=== PATIENT | female | born 1955 | race Caucasian/White ===

== ENCOUNTER 2019-05-23 03:31 | Day surgery (SDC) | payer MEDICARE, OTHER ==
[2019-05-23] MEDS ORDERED: Sodium Chloride 0.9% 10 ML Syringe FLUSH PRN (04:12)
--- NOTE | 2019-05-23 04:14 | EDM.PDOC ---
<Nilton Conner - Last Filed: 05/23/19 06:34> ED HPI GENERAL MEDICAL PROBLEM - General Chief Complaint: Abdominal Pain Stated Complaint: RIGHT SIDE PAIN Time Seen by Provider: 05/23/19 04:12 Source of Information: Reports: Patient, RN Notes Reviewed - History of Present Illness INITIAL COMMENTS - FREE TEXT/NARRATIVE: 63-year-old female comes in with right upper abdominal pain. Onset of this pain last evening about 8-9 hours ago. She states she may have slightly dosed off a time or 2 but the persistent pain needed very hard to sleep. She had been feeling fine earlier yesterday. She did eat borscht soup with sour cream last evening for dinner. She states she did have an episode of pain felt to be gallbladder related "many years ago" but has done fine since then up until now. She has had some nausea, dry heaves but no active vomiting. No chest pain difficulty breathing fever or chills. The pain has not been radiating strongly to her back. History of prior appendectomy. 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 Denies: Diarrhea Musculoskeletal: Denies: Shoulder Pain, Arm Pain, Back Pain Skin: Reports: No Symptoms Neurological: Reports: No Symptoms ED EXAM, GI/ABD - Physical Exam Exam: See Below General Appearance: Alert, Moderate Distress Eyes: Bilateral: Normal Appearance Throat/Mouth: Normal Inspection Head: Atraumatic Neck: Supple Respiratory/Chest: No Respiratory Distress, Lungs Clear Cardiovascular: Regular Rate, Rhythm GI/Abdominal Exam: Soft, Tender (Right upper abdomen and right mid abdomen, remainder of abdomen soft and nontender). No: Guarding, Rebound Back Exam: CVA Tenderness (R). No: CVA Tenderness (L) Extremities: Normal Inspection, Normal Range of Motion Neurological: Alert, Oriented, No Motor/Sensory Deficits Skin Exam: Warm, Dry, Normal Color Course - Vital Signs Last Recorded V/S: Last Vital Signs Temp 36.7 C 05/23/19 09:04 Pulse 96 05/23/19 09:04 Resp 16 05/23/19 09:04 BP 139/80 05/23/19 09:04 Pulse Ox 93 L 05/23/19 09:04 - Orders/Labs/Meds Orders: Active Orders 24 hr Category Date Time Status Peripheral IV Care [RC] . DIRECTED Care 05/23/19 04:13 Active Sodium Chloride 0.9% [Normal Saline] 1,000 ml Med 05/23/19 04:30 Active IV ONETIME Sodium Chloride 0.9% [Saline Flush] Med 05/23/19 04:12 Active 10 ml FLUSH ASDIRECTED PRN Peripheral IV Insertion Adult [OM.PC] Stat Oth 05/23/19 04:13 Ordered Medication Orders Sodium Chloride (Normal Saline) 1,000 mls @ 999 mls/hr IV ONETIME [facility] Last Admin: 05/23/19 04:33 Dose: 999 mls/hr Sodium Chloride (Saline Flush) 10 ml FLUSH ASDIRECTED PRN PRN Reason: Keep Vein Open Last Admin: 05/23/19 04:35 Dose: 10 ml Labs: Laboratory Tests 05/23/19 05/23/19 Range/Units 03:55 03:55 WBC 14.55 H (3.98-10.04) K/mm3 RBC 4.77 (3.98-5.22) M/mm3 Hgb 14.5 (11.2-15.7) gm/dl Hct 43.1 (34.1-44.9) % MCV 90.4 (79.4-94.8) fl MCH 30.4 (25.6-32.2) pg MCHC 33.6 (32.2-35.5) g/dl RDW Std Deviation 43.2 (36.4-46.3) fL Plt Count 514 H (182-369) K/mm3 MPV 8.6 L (9.4-12.3) fl Neut % (Auto) 88.3 H (34.0-71.1) % Lymph % (Auto) 8.9 L (19.3-51.7) % [place] % (Auto) 2.2 L (4.7-12.5) % Eos % (Auto) 0.1 L (0.7-5.8) Baso % (Auto) 0.1 (0.1-1.2) % Neut # (Auto) 12.84 H (1.56-6.13) K/mm3 Lymph # (Auto) 1.30 (1.18-3.74) K/mm3 [place] # (Auto) 0.32 (0.24-0.36) K/mm3 Eos # (Auto) 0.01 L (0.04-0.36) K/mm3 Baso # (Auto) 0.02 (0.01-0.08) K/mm3 Manual Slide Review Abnormal smear Sodium 131 L (136-145) mEq/L Potassium 4.2 (3.5-5.1) mEq/L Chloride 94 L (98-107) mEq/L Carbon Dioxide 23 (21-32) mEq/L Anion Gap 18.2 H (5-15) BUN 15 (7-18) mg/dL Creatinine 0.7 (0.55-1.02) mg/dL Est Cr Clr Drug Dosing 75.01 mL/min Estimated GFR (MDRD) > 60 (>60) mL/min BUN/Creatinine Ratio 21.4 H (14-18) Glucose 152 H (80-115) mg/dL Calcium 9.4 (8.5-10.1) mg/dL Total Bilirubin 0.2 (0.2-1.0) mg/dL GGT 25 (5-55) U/L AST 23 (15-37) U/L ALT 32 (14-59) U/L Alkaline Phosphatase 114 (46-116) U/L Total Protein 8.2 (6.4-8.2) g/dl Albumin 4.1 (3.4-5.0) g/dl Globulin 4.1 gm/dL Albumin/Globulin Ratio 1.0 (1-2) Lipase 174 (73-393) U/L Meds: Medications Generic Name Dose Route Start Last Admin Trade Name Sinan PRN Reason Stop Dose Admin Sodium Chloride 1,000 mls @ 999 mls/hr 05/23/19 04:30 05/23/19 04:33 Normal Saline IV 999 mls/hr ONETIME ABDULLAHI Administration Sodium Chloride 10 ml 05/23/19 04:12 05/23/19 04:35 Saline Flush FLUSH 10 ml ASDIRECTED PRN Administration Keep Vein Open Discontinued Medications Generic Name Dose Route Start Last Admin Trade Name Sinan PRN Reason Stop Dose Admin Hydromorphone HCl 0.5 mg 05/23/19 04:21 05/23/19 04:35 Dilaudid IVPUSH 05/23/19 04:22 0.5 mg ONETIME ONE Administration Ondansetron HCl 4 mg 05/23/19 04:21 05/23/19 04:33 Zofran IVPUSH 05/23/19 04:22 4 mg ONETIME ONE Administration - Re-Assessments/Exams Free Text/Narrative Re-Assessment/Exam: 05/23/19 05:37 White blood count is elevated, labs otherwise relatively normal. She still does have her gallbladder with history as noted of 1 episode of what may have been gallbladder associated illness many years ago. Her pain and tenderness this morning is all right upper quadrant. US of gallbladder has been ordered which can be done at 7 to 7:30 this morning. 05/23/19 07:00. Patient feeling better after IV dilaudid and IV zofran but still having some RUQ pain. It is change of shift. Will transfer care to Dr Caraballo. Departure - Departure Disposition: DC/Tfer to [facility] Clinical Impression: Acute cholecystitis, Acute cholecystitis due to biliary calculus - Discharge Information Referrals: PCP,None [Primary Care Provider] - Forms: ED Department Discharge Sepsis Event Note - Evaluation Sepsis Screening Result: No Definite Risk - Focused Exam Vital Signs: Vital Signs Temp Pulse Resp BP Pulse Ox 05/23/19 09:04 36.7 C 96 16 139/80 93 L 05/23/19 03:41 36.1 C 86 15 176/97 H 96 Date Exam was Performed: 05/23/19 Time Exam was Performed: 06:34 <Jasawnt Caraballo Last Filed: 05/23/19 10:11> Course - Re-Assessments/Exams Free Text/Narrative Re-Assessment/Exam: 05/23/19 09:43 Care at change of shift the patient had a gallbladder ultrasound done at looking at the results and it shows that there is a gallstone within the gallbladder neck with a fair amount of sludge within the gallbladder no gallbladder wall thickening or biliary duct dilation. Her white count is a little elevated at 14,500. The patient denies any fevers or chills and otherwise is doing very well at this time. Case discussed with Dr. Back on- call surgeon who will come and evaluate the patient and may indicate surgery later today. 05/23/19 10:[address] Back who is anticipating taking her to the OR shortly. Departure - Departure Time of Disposition: 10:07 Sepsis Event Note - Focused Exam Date Exam was Performed: 05/23/19 Time Exam was Performed: 10:07
[2019-05-23] MEDS ORDERED: Ondansetron 4 MG/2 ML SDV IVPUSH ONE (04:21)
[2019-05-23] MEDS ORDERED: HYDROmorphone 0.5 MG/0.5 ML Syringe IVPUSH ONE (04:21)
[2019-05-23] MEDS ORDERED: Sodium Chloride 0.9% 1,000 ML IV SCH (04:30)
--- NOTE | 2019-05-23 08:20 | US ---
Limited abdominal ultrasound: Multiple real-time images were obtained of the upper right abdomen. Liver contains no focal abnormality. Right kidney shows no hydronephrosis or discrete mass. Right kidney measures 11.5 cm in length. Pancreas is incompletely seen. Visualized portions of the pancreas are within normal limits. Gallbladder shows gallstone within the gallbladder neck. Gallbladder shows a fair amount of sludge. No gallbladder wall thickening or biliary duct dilatation is seen. Impression: 1. Gallstone within the gallbladder neck with a fair amoung if sludge within the gallbladder. No gallbladder wall thickening or biliary duct dilatation is seen. 2. No additional abnormality is appreciated on right upper quadrant abdominal ultrasound. Diagnostic code #3 This report was dictated in [place] Standard Time
[2019-05-23] MEDS ORDERED: ceFAZolin 2 GM in Premix Bag 1 BAG IV ONE (10:13)
--- NOTE | 2019-05-23 10:18 | PCM.HP.2 ---
H&P History of Present Illness - General Date of Service: 05/23/19 Source of Information: Patient History Limitations: Reports: No Limitations - History of Present Illness Duration of Symptoms: Reports: Hour(s): Location: Reports: Abdomen Quality: Reports: Sharp Severity: Severe Improves with: Reports: None Worsens with: Reports: None Other HPI/Comments: RUQ pain beginning after dinner last night, severe, lasting several hours.Associated nausea/vomiting. Had similar pain once decades ago and was found to have gallbladder sludge on ultrasound. Today, WBC 14,000 with gallstone in the neck of the gallbladder on ultrasound. 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: - Past Surgical History GI Surgical History: Reports: Appendectomy Social & Family History - Tobacco Use Smoking Status *Q: Current Every Day Smoker Years of Tobacco use: 1 Packs/Tins Daily: 0.3 - Caffeine Use Caffeine Use: Reports: Coffee - Recreational Drug Use Recreational Drug Use: No H&P Review of Systems - Review of Systems: Review Of Systems: See Below General: Reports: No Symptoms HEENT: Reports: No Symptoms Pulmonary: Reports: No Symptoms Cardiovascular: Reports: No Symptoms Gastrointestinal: Reports: Abdominal Pain, Anorexia, Vomiting Genitourinary: Reports: No Symptoms Musculoskeletal: Reports: No Symptoms Skin: Reports: No Symptoms Psychiatric: Reports: No Symptoms Neurological: Reports: No Symptoms Hematologic/Lymphatic: Reports: No Symptoms Immunologic: Reports: No Symptoms Exam - Exam Exam: See Below - Vital Signs Vital Signs: Last Vital Signs Temp 36.7 C 05/23/19 09:04 Pulse 96 05/23/19 09:04 Resp 16 05/23/19 09:04 BP 139/80 05/23/19 09:04 Pulse Ox 93 L 05/23/19 09:04 Weight: 79.379 kg - Exam General: Alert, Oriented HEENT: Conjunctiva Clear Neck: Supple Lungs: Clear to Auscultation Cardiovascular: Regular Rate GI/Abdominal Exam: Soft, No Distention, Tender, Other (positive Ramirez sign) (Female) Exam: Deferred Rectal (Female) Exam: Deferred Extremities: Normal Inspection Skin: Warm, Dry, Intact Neuro Extensive - Mental Status: Alert, Oriented x3 Psychiatric: Alert, Normal Affect - Patient Data Lab Results Last 24 hrs: Laboratory Results - last 24 hr 05/23/19 05/23/19 Range/Units 03:55 03:55 WBC 14.55 H (3.98-10.04) K/mm3 RBC 4.77 (3.98-5.22) M/mm3 Hgb 14.5 (11.2-15.7) gm/dl Hct 43.1 (34.1-44.9) % MCV 90.4 (79.4-94.8) fl MCH 30.4 (25.6-32.2) pg MCHC 33.6 (32.2-35.5) g/dl RDW Std Deviation 43.2 (36.4-46.3) fL Plt Count 514 H (182-369) K/mm3 MPV 8.6 L (9.4-12.3) fl Neut % (Auto) 88.3 H (34.0-71.1) % Lymph % (Auto) 8.9 L (19.3-51.7) % [place] % (Auto) 2.2 L (4.7-12.5) % Eos % (Auto) 0.1 L (0.7-5.8) Baso % (Auto) 0.1 (0.1-1.2) % Neut # (Auto) 12.84 H (1.56-6.13) K/mm3 Lymph # (Auto) 1.30 (1.18-3.74) K/mm3 [place] # (Auto) 0.32 (0.24-0.36) K/mm3 Eos # (Auto) 0.01 L (0.04-0.36) K/mm3 Baso # (Auto) 0.02 (0.01-0.08) K/mm3 Manual Slide Review Abnormal smear Sodium 131 L (136-145) mEq/L Potassium 4.2 (3.5-5.1) mEq/L Chloride 94 L (98-107) mEq/L Carbon Dioxide 23 (21-32) mEq/L Anion Gap 18.2 H (5-15) BUN 15 (7-18) mg/dL Creatinine 0.7 (0.55-1.02) mg/dL Est Cr Clr Drug Dosing 75.01 mL/min Estimated GFR (MDRD) > 60 (>60) mL/min BUN/Creatinine Ratio 21.4 H (14-18) Glucose 152 H (80-115) mg/dL Calcium 9.4 (8.5-10.1) mg/dL Total Bilirubin 0.2 (0.2-1.0) mg/dL GGT 25 (5-55) U/L AST 23 (15-37) U/L ALT 32 (14-59) U/L Alkaline Phosphatase 114 (46-116) U/L Total Protein 8.2 (6.4-8.2) g/dl Albumin 4.1 (3.4-5.0) g/dl Globulin 4.1 gm/dL Albumin/Globulin Ratio 1.0 (1-2) Lipase 174 (73-393) U/L Result Diagrams: 05/23/19 03:55 05/23/19 03:55 Sepsis Event Note - Evaluation Sepsis Screening Result: No Definite Risk - Focused Exam Vital Signs: Vital Signs Temp Pulse Resp BP Pulse Ox 05/23/19 09:04 36.7 C 96 16 139/80 93 L 05/23/19 03:41 36.1 C 86 15 176/97 H 96 Date Exam was Performed: 05/23/19 Time Exam was Performed: 10:14 *Q Meaningful Use (ADM) - VTE Risk Assess *Q Each Risk Factor Represents 2 Points: Age 60 - 74 Years Total Score 2 Point Risk Factors: 2 Problem List Initiated/Reviewed/Updated: Yes Orders Last 24hrs: Active Orders 24 hr Category Date Time Status Peripheral IV Care [RC] . DIRECTED Care 05/23/19 04:13 Active Sodium Chloride 0.9% [Normal Saline] 1,000 ml Med 05/23/19 04:30 Active IV ONETIME Sodium Chloride 0.9% [Saline Flush] Med 05/23/19 04:12 Active 10 ml FLUSH ASDIRECTED PRN ceFAZolin [Ancef] 2 gm Med 05/23/19 10:13 Ordered Premix Bag 1 bag IV ONETIME Peripheral IV Insertion Adult [OM.PC] Stat Oth 05/23/19 04:13 Ordered Schedule Procedure [COMM] Routine Oth 05/23/19 10:13 Ordered Medication Orders Sodium Chloride (Normal Saline) 1,000 mls @ 999 mls/hr IV ONETIME ABDULLAHI Last Admin: 05/23/19 04:33 Dose: 999 mls/hr Cefazolin Sodium/Dextrose 2 gm (/ Premix) 50 mls @ 100 mls/hr IV ONETIME ONE Stop: 05/23/19 10:42 Sodium Chloride (Saline Flush) 10 ml FLUSH ASDIRECTED PRN PRN Reason: Keep Vein Open Last Admin: 05/23/19 04:35 Dose: 10 ml Assessment/Plan Comment:: Acute cholecystitis- plan for laparoscopic cholecystectomy today. - Mortality Measure Prognosis:: Good
[2019-05-23] MEDS ORDERED: Albuterol 0.083% 2.5 MG/3 ML Neb Soln NEB ONE (11:31)
--- NOTE | 2019-05-23 11:52 | PCM.PREANE ---
Preanesthetic Assessment - Anesthesia/Transfusion/Family Hx Anesthesia History: Prior Anesthesia Without Reaction Family History of Anesthesia Reaction: No - Review of Systems General: Fatigue Pulmonary: No Symptoms (Smoker 1/3 pack per day. Bronchitis over negrita treated with zithromax, no residule symptoms. ) Cardiovascular: No Symptoms (Hypertension, controlled) Gastrointestinal: No Symptoms (Nausea earlier this morning, gone with zofran administration.) Neurological: Numbness, Pre-Existing Deficit (Neuropathy. Pain from neck to shoulders and face. Has seen neurologist for the past 5 years. Full ROM to neck. ), Tingling Other: Reports: None - Physical Assessment NPO Status Date: 05/22/19 NPO Status Time: 23:59 Vital Signs: Last Vital Signs Temp 36.7 C 05/23/19 09:04 Pulse 96 05/23/19 09:04 Resp 16 05/23/19 09:04 BP 139/80 05/23/19 09:04 Pulse Ox 93 L 05/23/19 09:04 Height: 1.68 m Weight: 79.379 kg ASA Class: 2 Mental Status: Alert & Oriented x3 Airway Class: Mallampati = 2 Dentition: Reports: Caries (Caps) Thyro-Mental Finger Breadths: 3 Mouth Opening Finger Breadths: 3 ROM/Head Extension: Full Lungs: Clear to Auscultation, Normal Respiratory Effort Cardiovascular: Regular Rate, Regular Rhythm - Lab Values: Laboratory Last Values WBC 14.55 K/mm3 (3.98-10.04) H 05/23/19 03:55 RBC 4.77 M/mm3 (3.98-5.22) 05/23/19 03:55 Hgb 14.5 gm/dl (11.2-15.7) 05/23/19 03:55 Hct 43.1 % (34.1-44.9) 05/23/19 03:55 MCV 90.4 fl (79.4-94.8) 05/23/19 03:55 MCH 30.4 pg (25.6-32.2) 05/23/19 03:55 MCHC 33.6 g/dl (32.2-35.5) 05/23/19 03:55 RDW Std Deviation 43.2 fL (36.4-46.3) 05/23/19 03:55 Plt Count 514 K/mm3 (182-369) H 05/23/19 03:55 MPV 8.6 fl (9.4-12.3) L 05/23/19 03:55 Neut % (Auto) 88.3 % (34.0-71.1) H 05/23/19 03:55 Lymph % (Auto) 8.9 % (19.3-51.7) L 05/23/19 03:55 [place] % (Auto) 2.2 % (4.7-12.5) L 05/23/19 03:55 Eos % (Auto) 0.1 (0.7-5.8) L 05/23/19 03:55 Baso % (Auto) 0.1 % (0.1-1.2) 05/23/19 03:55 Neut # (Auto) 12.84 K/mm3 (1.56-6.13) H 05/23/19 03:55 Lymph # (Auto) 1.30 K/mm3 (1.18-3.74) 05/23/19 03:55 [place] # (Auto) 0.32 K/mm3 (0.24-0.36) 05/23/19 03:55 Eos # (Auto) 0.01 K/mm3 (0.04-0.36) L 05/23/19 03:55 Baso # (Auto) 0.02 K/mm3 (0.01-0.08) 05/23/19 03:55 Manual Slide Review Abnormal smear 05/23/19 03:55 Sodium 131 mEq/L (136-145) L 05/23/19 03:55 Potassium 4.2 mEq/L (3.5-5.1) 05/23/19 03:55 Chloride 94 mEq/L (98-107) L 05/23/19 03:55 Carbon Dioxide 23 mEq/L (21-32) 05/23/19 03:55 Anion Gap 18.2 (5-15) H 05/23/19 03:55 BUN 15 mg/dL (7-18) 05/23/19 03:55 Creatinine 0.7 mg/dL (0.55-1.02) 05/23/19 03:55 Est Cr Clr Drug Dosing 75.01 mL/min 05/23/19 03:55 Estimated GFR (MDRD) > 60 mL/min (>60) 05/23/19 03:55 BUN/Creatinine Ratio 21.4 (14-18) H 05/23/19 03:55 Glucose 152 mg/dL (80-115) H 05/23/19 03:55 Calcium 9.4 mg/dL (8.5-10.1) 05/23/19 03:55 Total Bilirubin 0.2 mg/dL (0.2-1.0) 05/23/19 03:55 GGT 25 U/L (5-55) 05/23/19 03:55 AST 23 U/L (15-37) 05/23/19 03:55 ALT 32 U/L (14-59) 05/23/19 03:55 Alkaline Phosphatase 114 U/L (46-116) 05/23/19 03:55 Total Protein 8.2 g/dl (6.4-8.2) 05/23/19 03:55 Albumin 4.1 g/dl (3.4-5.0) 05/23/19 03:55 Globulin 4.1 gm/dL 05/23/19 03:55 Albumin/Globulin Ratio 1.0 (1-2) 05/23/19 03:55 Lipase 174 U/L (73-393) 05/23/19 03:55 - Allergies Allergies/Adverse Reactions: Allergies Allergy/AdvReac Type Severity Reaction Status Date / Time No Known Allergies Allergy Verified 05/23/19 03:43 - Acknowledgements Anesthesia Type Planned: General Anesthesia Pt an Appropriate Candidate for the Planned Anesthesia: Yes Alternatives and Risks of Anesthesia Discussed w Pt/Guardian: Yes Pt/Guardian Understands and Agrees with Anesthesia Plan: Yes PreAnesthesia Questionnaire 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: Reports: Hypertension 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: - Past Surgical History GI Surgical History: Reports: Appendectomy - SUBSTANCE USE Smoking Status *Q: Current Every Day Smoker Tobacco Use Within Last Twelve Months: Cigarettes Recreational Drug Use History: No - HOME MEDS Home Medications: Home Meds Lisinopril/Hydrochlorothiazide [Lisinopril-HCTZ 10-12.5 MG] 1 tab PO DAILY 05/23 [History] - CURRENT (IN HOUSE) MEDS Current Meds: Current Medications Sodium Chloride (Normal Saline) 1,000 mls @ 999 mls/hr IV ONETIME [facility] Last Admin: 05/23/19 04:33 Dose: 999 mls/hr Sodium Chloride (Saline Flush) 10 ml FLUSH ASDIRECTED PRN PRN Reason: Keep Vein Open Last Admin: 05/23/19 04:35 Dose: 10 ml Discontinued Medications Albuterol (Proventil Neb Soln) 2.5 mg NEB ONETIME ONE Stop: 05/23/19 11:32 Hydromorphone HCl (Dilaudid) 0.5 mg IVPUSH ONETIME ONE Stop: 05/23/19 04:22 Last Admin: 05/23/19 04:35 Dose: 0.5 mg Cefazolin Sodium/Dextrose 2 gm (/ Premix) 50 mls @ 100 mls/hr IV ONETIME ONE Stop: 05/23/19 10:42 Last Admin: 05/23/19 10:44 Dose: 100 mls/hr Ondansetron HCl (Zofran) 4 mg IVPUSH ONETIME ONE Stop: 05/23/19 04:22 Last Admin: 05/23/19 04:33 Dose: 4 mg
[2019-05-23] MEDS ORDERED: Propofol 200 MG/20 ML SDV ONE ×2 (13:02→13:04)
[2019-05-23] MEDS ORDERED: Ondansetron 4 MG/2 ML SDV ONE ×2 (13:03→13:04)
[2019-05-23] MEDS ORDERED: Rocuronium 50 MG/5 ML Vial ONE ×2 (13:03→13:04)
[2019-05-23] MEDS ORDERED: fentaNYL 250 MCG/5 ML SDV ONE ×2 (13:03→13:04)
[2019-05-23] MEDS ORDERED: Midazolam 1 MG/ML 2 ML SDV ONE ×2 (13:03→13:04)
[2019-05-23] MEDS ORDERED: Dexamethasone 4 MG/ML 5 ML MDV ONE ×2 (13:03→13:05)
[2019-05-23] MEDS ORDERED: Lactated Ringers 1,000 ML ONE ×2 (13:04→14:34)
[2019-05-23] MEDS ORDERED: Lidocaine 1% 4 ML ONE (13:04)
[2019-05-23] MEDS ORDERED: Lidocaine 1% 0 ML ONE (13:04)
[2019-05-23] MEDS ORDERED: ceFAZolin 1 GM Vial ONE (13:04)
[2019-05-23] MEDS ORDERED: Ketorolac 30 MG/ML SDV ONE ×2 (13:26→14:50)
[2019-05-23] MEDS ORDERED: Bupivacaine 0.5%/EPINEPHrine 1:200,000 50 ML MDV ONE ×2 (14:01→14:02)
[2019-05-23] MEDS ORDERED: Iopamidol 612 MG/ML 50 ML SDV ONE (14:02)
[2019-05-23] MEDS ORDERED: Labetalol 100 MG/20 ML MDV ONE (14:50)
[2019-05-23] MEDS ORDERED: HYDROmorphone 0.5 MG/0.5 ML Syringe ONE (14:54)
[2019-05-23] MEDS ORDERED: HYDROmorphone 0.5 MG/0.5 ML Syringe IVPUSH PRN (15:03)
[2019-05-23] MEDS ORDERED: Ondansetron 4 MG/2 ML SDV IVPUSH PRN (15:03)
[2019-05-23] MEDS ORDERED: fentaNYL 100 MCG/2 ML SDV ONE (15:35)
--- NOTE | 2019-05-23 16:04 | PCM.POSTAN ---
POST ANESTHESIA ASSESSMENT - MENTAL STATUS Mental Status: Alert, Oriented - VITAL SIGNS Vital Signs: Last Vital Signs Temp 37.1 C 05/23/19 12:07 Pulse 103 H 05/23/19 12:07 Resp 20 05/23/19 12:07 BP 152/82 H 05/23/19 12:07 Pulse Ox 91 L 05/23/19 12:07 1556 168/93 93 16 97% 98.3F - RESPIRATORY Respiratory Status: Respiratory Rate WNL, Airway Patent, O2 Saturation Stable, Supplemental Oxygen - CARDIOVASCULAR CV Status: Pulse Rate WNL - GASTROINTESTINAL GI Status: No Symptoms - PAIN Pain Score: 0 - POST OP HYDRATION Hydration Status: Adequate & Stable
[2019-05-23] MEDS: fentaNYL 100 MCG/2 ML SDV IVPUSH PRN ×2 (16:11→16:58)
--- NOTE | 2019-05-23 16:43 | PCM.PRNOTE ---
- Free Text/Narrative Note: Operative Report Operation: laparoscopic cholecystectomy Date: 05/23/2019 Attending Surgeon: Gopal Back MD Indication for Surgery:RUQ pain, WBC 14,000, US shoed gallstone impacted at gallbladder neck Preoperative antibiotics: 2 g Ancef IV VTE prophylaxis: SCDs Estimated Blood Loss: 10 cc Findings: inflamed and edematous gallbladder with large stone lodged at the level of the infundibulum. The infundibulum was folded over and adherent to the cystic duct. A critical view was obtained. Detailed Report: The patient underwent general endotracheal anesthesia after being placed supine on the operating table and initial timeout. The abdomen was prepped and draped in sterile fashion. A pre-incision timeout was performed confirming the patient s identity and the operation to be performed. A Veress needle was inserted into the abdominal cavity below the left costal margin along the mid-clavicular line. The abdomen was insufflated with CO2 to 15 mm Hg. Gas was aspirated below the umbilicus with a syringe in order to ensure safe placement of a 5 mm bladed laparoscopic port. The 5mm 30 degree laparoscope was then inserted and viscera inspected. The gallbladder appeared inflamed and edematous. Two additional 5 mm ports were placed along the right subcostal region under direct vision with the laparoscope, and a 12 mm port was placed at the subxiphoid region. The gallbladder was challenging to handle due to a thickened rind and impacted large stone near the infundibulum. The gallbladder was grasped at the fundus with a locking grasper and retracted anteriorly and superiorly. The duodenum and surrounding omentum which were adherent to the lateral aspect of the gallbladder were carefully dissected away. The overlying peritoneum of the gallbladder was opened along the lateral and medial attachments to the liver. During handling with the locking grasper, attenuated gallbladder tissue at the site of stone impaction superior to the infundibulum ruptured, with spillage of purulent and bilious fluid. The gallbladder was retracted toward the patient's right, and with careful, slow dissection it became apparent that the infundibulum was folded medially and adherent to the cystic duct. A combination of hook electrode, blunt dissection with the suction decontaminator and laparoscopic Kittner dissector, and the [place] grasper were used to carefully expose and skeletonize the cystic duct. The arterial supply was diminuitive and taken with monopolar energy. A critical view of safety was obtained, with a single ductal structure running to the gallbladder and plenty of space between it and the gallbladder fossa with visible liver surface between. Hemolock clips were then placed on the duct; two green clips and then a purple clip inferior to those, with transection between the two green clips with laparoscopic mal. The hook was then used to dissect the gallbladder free from its attachment to the liver. The specimen was then placed in an Endocatch bag and removed through the subxiphoid port. The liver bed was inspected and bleeding was controlled with directed monopolar energy. The filed was thoroughly irrigated and suctioned dry. The larger subxiphoid port was closed at the level of the fascia with vicryl suture using the PMI laparoscopic suture passer. Pneumoperitoneum was then released. All skin incisions were then closed with placement of subcuticular vicryl suture and dressed with dermabond. A total of 15 cc 0.5% marcaine with epinephrine was used for local anesthesia at the incision sites. The patient tolerated the operation well, was extubated in the operating room and transferred to the PACU for routine post-anesthesia care. Gopal Back MD General Surgery
[2019-05-23] MEDS ORDERED: Acetaminophen/oxyCODONE 325-5 MG Tab PO PRN (17:54)
--- NOTE | 2019-05-24 07:56 | PCM48HPAN ---
Post Anesthesia Note - EVALUATION WITHIN 48HRS OF ANESTHETIC Vital Signs in Normal Range: Yes Patient Participated in Evaluation: Yes Respiratory Function Stable: Yes Airway Patent: Yes Cardiovascular Function Stable: Yes Hydration Status Stable: Yes Pain Control Satisfactory: Yes Nausea and Vomiting Control Satisfactory: Yes Mental Status Recovered: Yes Vital Signs: Last Vital Signs Temp 37.2 C 05/23/19 18:17 Pulse 93 05/23/19 18:17 Resp 16 05/23/19 18:17 BP 160/85 H 05/23/19 18:17 Pulse Ox 94 L 05/23/19 18:17
== END 2019-05-23 18:42 | disposition home or self-care (01) ==
LOC: JD.ED 03:31 → JD.SDS 11:34
PROVIDERS: ATTEND Surgery
DX: K80.10 Calculus of gallbladder with chronic cholecystitis without obstruction (principal); D13.5 Benign neoplasm of extrahepatic bile ducts; I10 Essential (primary) hypertension; F17.210 Nicotine dependence, cigarettes, uncomplicated; Z90.49 Acquired absence of other specified parts of digestive tract
CPT/HCPCS: 36415; 47562; 76705; 80053; 82977; 83690; 85025; 88304; 93005; 94640; 96361; 96365; 96375; 96376; 99203; 99285; A9270; J0690; J1100; J1170; J1885; J2001; J2250; J2405; J2704; J3010; J3490; J7030; J7120; 00790; 99284; Q9967

== ENCOUNTER 2022-05-12 17:35 | Emergency (ER) | payer MEDICARE, OTHER ==
[2022-05-12] MEDS ORDERED: Aspirin 81 MG Tab.Chew PO ONE (18:09)
[2022-05-12] MEDS ORDERED: Sodium Chloride 0.9% 10 ML Syringe FLUSH PRN (18:09)
[2022-05-12] MEDS ORDERED: Labetalol 100 MG/20 ML MDV IVPUSH ONE (18:10)
== END 2022-05-12 20:07 | disposition home or self-care (01) ==
LOC: JD.ED 17:35
DX: I10 Essential (primary) hypertension (principal); M79.602 Pain in left arm; R68.84 Jaw pain; R00.0 Tachycardia, unspecified; Z79.899 Other long term (current) drug therapy
CPT/HCPCS: 36415; 71045; 80053; 84484; 85025; 93005; 96374; 99284; A9270; J3490

== ENCOUNTER 2023-09-17 13:29 | Day surgery (SDC) | payer MEDICARE, OTHER ==
[2023-09-17] MEDS: Polymyxin B/Trimethoprim 10 ML Bottle EYELF SCH (14:36)
[2023-09-17] MEDS: Brimonidine 0.2% Ophth Soln 5 ML Bottle EYELF SCH (14:40)
[2023-09-17] MEDS: Phenylephrine 2.5% Ophth Soln 2 ML Bot EYELF SCH (14:43)
[2023-09-17] MEDS: Tropicamide 1% Ophth Soln 3 ML Bottle EYELF SCH (14:47)
[2023-09-17] MEDS: Tetracaine HCl/PF 0.5% 4 ML Bottle EYEBOTH SCH (15:29)
[2023-09-17] MEDS: Pilocarpine 4% Ophth Soln 15 ML Bot EYELF SCH (16:00)
[2023-09-17] MEDS: Lidocaine 1% PF 2 ML SDV INJECT SCH (16:00)
[2023-09-17] MEDS: Cefuroxime 10 MG/ML SYRINGE EYELF SCH (16:15)
== END 2023-09-17 16:22 | disposition home or self-care (01) ==
LOC: JD.SDS 13:29
PROVIDERS: ATTEND Ophthalmology
DX: H25.813 Combined forms of age-related cataract, bilateral (principal); H16.103 Unspecified superficial keratitis, bilateral; H16.223 Keratoconjunctivitis sicca, not specified as Sjogren's, bilateral; H02.831 Dermatochalasis of right upper eyelid; H02.834 Dermatochalasis of left upper eyelid; I10 Essential (primary) hypertension; Z87.891 Personal history of nicotine dependence; Z79.899 Other long term (current) drug therapy
CPT/HCPCS: 66984; A9270; J0697; J3490